=== PATIENT | female | born 1945 | race Caucasian/White ===

== ENCOUNTER 2024-05-07 07:50 | Inpatient (IN) | payer MEDICARE, OTHER ==
[2024-05-07 08:12] LABS: #Basophils 0.06 10x3/uL (0.0-0.2); %Basophils 0.5 % (0.0-1.0); %Eosinophils 1.7 % (0.0-10.0); %Monocytes 5.9 % (0.0-10.0); %Neutrophils 69.6 % (42.0-75.0); Hematocrit 46.8 % (36.0-47.0); Hemoglobin 15.5 g/dL (12.0-16.0); Mean Corpuscular HGB CONC 33.1 g/dL (32.0-36.0); Mean Corpuscular Hemoglobin 31.4 pg (27.0-31.0); Mean Corpuscular Volume 94.9 fL (78.0-98.0); Mean Platelet Volume 8.8 fL (7.4-10.4); Platelet Count 488 10x3/uL (130-400); RBC Distribution Width 12.7 % (11.5-14.5); Red Blood Cell (RBC) Count 4.93 mill/uL (4.20-5.40)
[2024-05-07] MEDS ORDERED: Tranexamic Acid 1,000 MG/10 ML VIAL ONE (08:12)
[2024-05-07] MEDS ORDERED: Dexamethasone 10 MG/ML VIAL ONE (08:12)
[2024-05-07] MEDS ORDERED: hydrALAZINE 20 MG/ML VIAL ONE (08:12)
[2024-05-07] MEDS ORDERED: Ondansetron PF 4 MG/2 ML Vial ONE (08:12)
[2024-05-07 08:27] LABS: ALT (SGPT) 10 U/L (8-55); AST (SGOT) 15 U/L (5-34); Albumin 3.4 g/dL (3.4-4.8); Alkaline Phosphatase 84 U/L (40-110); Anion Gap 13 mmol/L (10-20); BUN (Urea Nitrogen) 30 mg/dL (9.8-20.1); Bilirubin, Total 0.4 mg/dL (0.2-1.2); Calc. Creatinine Clearance 0 mL/min (70-130); Calcium 9.6 mg/dL (7.8-10.44); Carbon Dioxide 26 mmol/L (23-31); Chloride 105 mmol/L (98-107); Estimated GFR 64; Globulin 3.9 g/dL (2.4-3.5); Glucose 219 mg/dL (83-110); Protein, Total 7.3 g/dL (5.8-8.1); Sodium 140 mmol/L (136-145)
[2024-05-07 08:33] LABS: Troponin I 0.013 ng/mL (< 0.028)
[2024-05-07] MEDS ORDERED: Sodium Chloride 0.9% 100 ML ONE (10:22)
[2024-05-07] MEDS ORDERED: cefTRIAXone (ROCEPHIN) 2 GM VIAL ONE (10:22)
[2024-05-07] MEDS ORDERED: Azithromycin 500 MG VIAL ONE (11:12)
[2024-05-07 12:07] LABS: Bilirubin Negative (Negative); Blood, Urine Negative (Negative); CAUTI Indications for Culture Dysuria,urgency,freq; Clarity Clear (Clear); Glucose, Urine (Dipstick) Normal (Negative); Ketone, Urine Negative (Negative); Leukocyte Negative Leu/uL (Negative); Nitrite Negative (Negative); Protein, Urine (Dipstick) 10 mg/dL (Neg-Trace); Squamous Epithelial 0-3 HPF (0-3); Urobilinogen Normal mg/dL (Less than 2); WBC/HPF 0-3 HPF (0-3); pH, Urine 7.5 (5.0-9.0)
[2024-05-07 12:18] LABS: Bacteria/HPF 1+ HPF (None Seen); Yeast-Budding Rare HPF (None Seen)
[2024-05-07 12:19] LABS: Urine Culture Reflex No No
[2024-05-07 12:20] LABS: Specific Gravity, Urine 1.056 (1.002-1.036)
[2024-05-07] MEDS ORDERED: Iopamidol-370 76% 500 ML MDV (1 ML CHARGE) ONE ×2 (14:26)
[2024-05-07 16:11] VITALS: BMI 16.9
[2024-05-07] MEDS ORDERED: Electrolyte Replacement Protocol 1 EACH IVPB PRN (16:18)
[2024-05-07] MEDS ORDERED: Ondansetron PF 4 MG/2 ML Vial IVP PRN (16:18)
[2024-05-07] MEDS ORDERED: Racepinephrine 2.25% 0.5 ML NEB NEB PRN (16:22)
[2024-05-07] MEDS ORDERED: Acetaminophen 650 MG/20.3 ML UDCUP PO PRN (16:24)
[2024-05-07] MEDS ORDERED: Insulin Regular, Human 100 UNIT/ML 10 ML VIAL SC PRN (16:26)
[2024-05-07] MEDS: Sodium Chloride 0.9% 1,000 ML IV SCH (17:16)
[2024-05-07] MEDS: Ipratropium Bromide 2.5 ml Neb NEB SCH (18:51)
[2024-05-07] MEDS: AMOXicillin 250 MG CAP PO SCH (20:14)
[2024-05-07] MEDS: Famotidine/PF 20 mg/2ml Vial SLOW IVP SCH (20:14)
[2024-05-08 04:58] LABS: #Basophils Less than 0.03 10x3/uL (0.0-0.2); #Eosinophils Less than 0.03 10x3/uL (0.0-0.7); %Basophils 0.2 % (0.0-1.0); %Eosinophils 0.1 % (0.0-10.0); %Lymphocytes 20.4 % (21.0-51.0); %Monocytes 9.5 % (0.0-10.0); %Neutrophils 69.4 % (42.0-75.0); Hematocrit 37.3 % (36.0-47.0); Hemoglobin 12.2 g/dL (12.0-16.0); Mean Corpuscular HGB CONC 32.7 g/dL (32.0-36.0); Mean Corpuscular Hemoglobin 31.8 pg (27.0-31.0); Mean Corpuscular Volume 97.1 fL (78.0-98.0); Mean Platelet Volume 8.9 fL (7.4-10.4); Platelet Count 346 10x3/uL (130-400); RBC Distribution Width 12.8 % (11.5-14.5); Red Blood Cell (RBC) Count 3.84 mill/uL (4.20-5.40)
[2024-05-08 05:04] LABS: Hemoglobin A1c 5.5 % (4.0-6.0)
[2024-05-08 05:38] LABS: ALT (SGPT) 8 U/L (8-55); AST (SGOT) 14 U/L (5-34); Albumin 2.8 g/dL (3.4-4.8); Alkaline Phosphatase 58 U/L (40-110); Anion Gap 11 mmol/L (10-20); BUN (Urea Nitrogen) 19 mg/dL (9.8-20.1); Bilirubin, Total 0.3 mg/dL (0.2-1.2); Calc. Creatinine Clearance 52 mL/min (70-130); Calcium 8.4 mg/dL (7.8-10.44); Carbon Dioxide 24 mmol/L (23-31); Chloride 110 mmol/L (98-107); Estimated GFR 89; Globulin 3.2 g/dL (2.4-3.5); Glucose 85 mg/dL (83-110); Potassium 4.1 mmol/L (3.5-5.1); Sodium 141 mmol/L (136-145)
[2024-05-08 06:12] VITALS: TEMP 97.9
[2024-05-08] MEDS: Dexamethasone 10 MG in Sodium Chloride 0.9% 50 ML IVPB SCH (09:19)
[2024-05-08 10:09] VITALS: BMI 16.9
[2024-05-08] MEDS ORDERED: Famotidine/PF 20 mg/2ml Vial SLOW IVP SCH (21:00)
[2024-05-10] MEDS ORDERED: FLU (Fluad Triv) TS24-25 (65UP)/MF59C/PF 45 MCG/0.5 ML Syringe IM ONE (09:00)
== END 2024-05-08 13:45 | disposition home or self-care (01) | DRG 916 ==
LOC: ERS 07:50 → ERHOLD 13:36 → IMCU/EMU 16:21
PROVIDERS: ADMIT Internal Medicine; ATTEND Internal Medicine
DX: T78.3XXA Angioneurotic edema, initial encounter (principal); Z98.890 Other specified postprocedural states; K02.9 Dental caries, unspecified; J43.9 Emphysema, unspecified; Z79.899 Other long term (current) drug therapy
CPT/HCPCS: 36415; 36416; 36430; 70487; 71045; 71275; 80053; 81001; 83036; 83605; 83880; 84484; 85025; 85379; 86850; 86900; 86901; 87040; 87077; 87086; 87149; 87428; 93005; 94640; 94760; 96365; 96367; 96375; J0360; J0456; J0696; J1100; J2405; J3490; J7030; J7644; P9059; Q9967